=== PATIENT | female | born 1970 | race Caucasian/White ===

== ENCOUNTER 2019-07-17 09:23 | Outpatient (CLI) | payer OTHER ==
--- NOTE | 2019-07-17 10:07 | MMO ---
Bilateral MAMMO Bilat Screen [facility]. CLINICAL HISTORY: Patient is 49 years old and is seen for screening. The patient has no family history of breast cancer. The patient has no personal history of cancer. VIEWS: The views performed were: bilateral craniocaudal with tomosynthesis; bilateral mediolateral oblique with tomosynthesis; and right exaggerated craniocaudal. FILMS COMPARED: The present examination has been compared to a prior imaging study performed at [facility] on 03/14/2008. This study has been interpreted with the assistance of computer-aided detection. MAMMOGRAM FINDINGS: There are scattered fibroglandular densities. There are no suspicious masses, suspicious calcifications, or new areas of architectural distortion. IMPRESSION: THERE IS NO MAMMOGRAPHIC EVIDENCE OF MALIGNANCY. A ROUTINE FOLLOW-UP MAMMOGRAM IN 1 YEAR IS RECOMMENDED. THE RESULTS OF THIS EXAM WERE SENT TO THE PATIENT. ACR BI-RADS Category 1 - Negative MAMMOGRAPHY NOTE: 1. A negative mammogram report should not delay a biopsy if a dominant of clinically suspicious mass is present. 2. Approximately 10% to 15% of breast cancers are not detected by mammography. 3. Adenosis and dense breasts may obscure an underlying neoplasm. Reported by: JHOAN PERRY MD Electonically Signed: [id number]
== END 2019-07-17 09:24 | disposition home or self-care (01) ==
LOC: BICMAMMO 09:23
PROVIDERS: ATTEND Family Medicine
DX: Z12.31 Encounter for screening mammogram for malignant neoplasm of breast (principal)
CPT/HCPCS: 77063; 77067

== ENCOUNTER 2019-10-05 11:27 | Day surgery (SDC) | payer OTHER ==
[2019-10-02 13:03] VITALS: BMI 22.1
[2019-10-05] MEDS ORDERED: PROPOFOL 200 MG/20 ML VIAL ONE (11:33)
--- NOTE | 2019-10-05 22:18 | OP ---
DATE OF PROCEDURE: 10/05/2019 PROCEDURE: Ileocolonoscopy with snare polypectomy and biopsy. PREPROCEDURE DIAGNOSES: 1. Average risk colon screening. 2. Chronic intermittent diarrhea. POSTPROCEDURE DIAGNOSES: 1. Exam to distal terminal ileum; good bowel preparation. 2. Normal terminal ileum. 3. A 4-mm sessile polyp in the mid ascending colon, removed by cold snare technique. 4. Grossly normal-appearing colonic mucosa, biopsied in the right colon for histology. 5. Small internal hemorrhoids, not actively bleeding. 6. Otherwise normal colonoscopy. DESCRIPTION OF PROCEDURE: Written informed consent was obtained. The patient was brought to the endoscopy suite. Total intravenous anesthesia was administered by Dr. Chase and associates. The patient was placed in the left lateral decubitus position. A digital rectal exam was performed that was unremarkable. A Pentax video colonoscope was inserted through the anal canal and advanced under direct visualization to the cecum. Position in the cecum was verified by clear identification of the appendiceal orifice and the ileocecal valve. The quality of the bowel preparation was good. The ileocecal valve was intubated and a brief inspection was also made of the distal terminal ileum, which appeared normal. The colonoscope was slowly withdrawn from the cecum and close inspection was made of all segments of the colon. The colonic mucosa appeared grossly normal. There was no evidence of obvious colitis, diverticulosis, or angiodysplasia. In the mid ascending colon, a 4 mm sessile polyp was identified and removed by cold snare technique. Complete resection was verified and the tissue was submitted to pathology. No other synchronous polyps were identified. Random biopsies were obtained in the ascending and proximal transverse colon to evaluate for any microscopic changes. A retroflexed exam in the rectum demonstrated small internal hemorrhoids that were not actively bleeding. The colon was then decompressed as the colonoscope was completely removed from the patient. There were no immediate complications. She was transferred to the Day Stay surgery area for postprocedure monitoring. RECOMMENDATIONS: 1. Await biopsy results. 2. Ask the patient to call me in 1 week for biopsy results. 3. Repeat colonoscopy in 5 years pending review of pathology results. 4. Obtain blood test for celiac serology. 5. Use Imodium 1 tablet p.o. daily p.r.n., diarrhea. 6. Follow up in the office in 6 to 8 weeks. Job ID: [id number]
[2019-10-09 14:48] LABS: t-Transglutaminase (tTG) IgA 0.6 EliAU/mL (<7 Negative); t-Transglutaminase (tTG) IgG Less than 0.6 EliAU/mL (<7 Negative)
== END 2019-10-05 15:10 | disposition home or self-care (01) ==
LOC: SDC 11:27
PROVIDERS: ATTEND Internal Medicine Gastroenterology
PROC: 0DBK8ZX Excision of Ascending Colon, Via Natural or Artificial Opening Endoscopic, Diagnostic (ICD-10-PCS; principal; 2019-10-05)
PROC: 0DBL8ZX Excision of Transverse Colon, Via Natural or Artificial Opening Endoscopic, Diagnostic (ICD-10-PCS; principal; 2019-10-05)
DX: D12.2 Benign neoplasm of ascending colon (principal); K64.8 Other hemorrhoids; K52.9 Noninfective gastroenteritis and colitis, unspecified; Z79.899 Other long term (current) drug therapy
CPT/HCPCS: 36415; 83516; 88305; J2704